=== PATIENT | female | born 1945 | race Caucasian/White ===

== ENCOUNTER → 2024-02-06 06:32 | Day surgery (SDC) | payer MEDICARE, OTHER, SELFPAY | LOC: GI 06:32 | PROVIDERS: ATTENDING PHYSICIAN Internal Medicine Gastroenterology | DX: Z12.11 Encounter for screening for malignant neoplasm of colon (principal); Z86.010 Personal history of colon polyps; K57.30 Diverticulosis of large intestine without perforation or abscess without bleeding; K64.0 First degree hemorrhoids; D12.2 Benign neoplasm of ascending colon; D12.3 Benign neoplasm of transverse colon; D12.5 Benign neoplasm of sigmoid colon; K22.2 Esophageal obstruction; K44.9 Diaphragmatic hernia without obstruction or gangrene; K31.7 Polyp of stomach and duodenum; K31.89 Other diseases of stomach and duodenum; R11.0 Nausea | CPT/HCPCS: 45385; 45381; 45380; 43239; 88305; 88342 ==

== ENCOUNTER → 2024-07-26 06:31 | Day surgery (SDC) | payer MEDICARE, OTHER, SELFPAY | LOC: GI 06:31 | PROVIDERS: ATTENDING PHYSICIAN Internal Medicine Gastroenterology | DX: Z12.11 Encounter for screening for malignant neoplasm of colon (principal); D12.3 Benign neoplasm of transverse colon; K63.89 Other specified diseases of intestine; K57.30 Diverticulosis of large intestine without perforation or abscess without bleeding; K64.0 First degree hemorrhoids; K56.2 Volvulus; Q43.8 Other specified congenital malformations of intestine; Z86.0100 Personal history of colon polyps, unspecified; Z98.890 Other specified postprocedural states | CPT/HCPCS: 45385; 45380; 45381; 45388; 88305 ==

== ENCOUNTER → 2025-02-25 07:34 | Outpatient (REF) | payer MEDICARE, OTHER, SELFPAY ==
[2025-02-25 09:02] LABS: % Eosinophils 2.7 % (0-6); % Immature Granulocytes 0.2 % (0-0.5); % Monocytes 10.2 % (1.7-9.3); % Neutrophils 68.9 % (42.2-75.2); Absolute Basophils 0.1 10^3/uL (0-0.2); Absolute Eosinophils 0.2 10^3/uL (0-0.7); Absolute Lymphocytes 1.4 10^3/uL (1.2-3.4); Absolute Monocytes 0.8 10^3/uL (0.1-0.6); Absolute Neutrophils 5.5 10^3/uL (1.4-6.5); Hemoglobin 13.9 g/dL (12.0-16.0); Mean Corp Hgb Conc. 33.1 g/dL (33.0-37.0); Mean Corpuscular Hgb 31.3 pg (27.0-31.0); Mean Corpuscular Volume 94.6 fL (81.0-99.0); Mean Platelet Volume 10.3 fL (7.4-10.4); Nucleated Red Blood Cells % 0 %; Platelet Count 322 10^3/uL (130-400); Red Blood Cell Count 4.44 10^6/uL (4.20-5.40); Red Cell Dist. Width 13.4 % (11.5-14.5); White Blood Cell Count 8.1 10^3/uL (4.8-10.8)
[2025-02-25 10:06] LABS: TSH Reflex To Free T4 2.46 uIU/ml (0.47-4.68)
[2025-02-25 10:50] LABS: ALT (SGPT) 16 U/L (0-35); AST (SGOT) 22 U/L (14-36); Albumin 4.5 g/dl (3.5-5.0); Alkaline Phosphatase 83 U/L (38-126); Blood Urea Nitrogen 19 mg/dl (7-17); Calcium 9.6 mg/dl (8.4-10.2); Carbon Dioxide 23 mmol/L (22-30); Chloride 108 mmol/L (98-107); Glucose 82 mg/dl (70-99); HDL Cholesterol 98 mg/dl; LDL Cholesterol, Calculated 112 mg/dl; Potassium 4.1 mmol/L (3.5-5.1); Sodium 140 mmol/L (135-145); Total Bilirubin 0.8 mg/dl (0.2-1.3); Total Cholesterol 226 mg/dl (50-199); Total Protein 6.7 g/dl (6.3-8.2); Triglyceride 82 mg/dl (10-149); Very Low Density Lipoprotein 16 mg/dl (0-30); eGFR > 60.00
== END ==
LOC: REG 07:34
PROVIDERS: ATTENDING PHYSICIAN Family Medicine
DX: J43.2 Centrilobular emphysema (principal); M85.89 Other specified disorders of bone density and structure, multiple sites; R41.3 Other amnesia; Z13.6 Encounter for screening for cardiovascular disorders; K56.7 Ileus, unspecified
CPT/HCPCS: 36415; 80053; 80061; 84443; 85025

== ENCOUNTER 2025-06-02 10:02 | Emergency (ER) | payer MEDICARE, OTHER, SELFPAY ==
[2025-06-02 10:06] VITALS: BP 131/90
--- NOTE | 2025-06-02 11:33 | ED.GENMED ---
History of Present Illness
General
Chief Complaint: Musculo-Skeletal Complaint
Source: patient and spouse
Exam Limitations: none
Time Seen by Provider: 06/02/25 11:13
Nursing documentation reviewed up to this point in time: agreed with
History of Present Illness
History of Present Illness:
80-year-old female presenting to the emergency department with ongoing wrist discomfort after falling on her wrist 3 weeks ago. Has been wearing a brace still ongoing pain. Denies numbness weakness or additional injuries.
Past History
Past History
ED Past Medical History: COPD and Other (Osteoporosis)
ED Past Surgical History: and Tonsilectomy
Social History
Tobacco: Former smoker
Alcohol: None
Drug: None
Personal:
Living: with family
Review of Systems
Review of Systems
Allergies reviewed?: Yes
All Other Systems: ROS reviewed and negative except as documented in HPI and ROS
Phy Exam
Physical Exam
Physical Exam:
GENERAL: Alert , in no apparent distress
EYE: pupils equal and reactive
NECK: Supple, no significant adenopathy.
ENT: o/p clr, mmm.
CARDIAC: Regular rate and rhythm .
LUNGS: Clear breath sounds bilaterally, no acute respiratory distress, no wheezes/rales/rhonchi
ABDOMEN: Soft, without focal tenderness, no r/g, no cvat
NEUROLOGICAL: Alert and oriented, no focal neuro deficits
SKIN: Warm and dry, skin intact.
MUSCULOSKELETAL: Discomfort to the right wrist to palpation mainly to the base of the thumb not specifically over the anatomical snuffbox some mild pain to the distal radius no discomfort throughout the remainder of the forearm elbow upper arm or
hand. No swelling. No edema, well perfused.
PSYCH: Normal and appropriate interaction.
Course
Orders/Labs/Results
Orders:
Orders
06/02/25 10:10
CR Wrist - Right Min 3 Views Urgent
Comment:
Reason For Exam: fall on outstretched hand 3 weeks ago
06/02/25 11:33
Splints/Slings/Crut- Treatment ONCE
Vital Signs
Initial and Last Documented VS:
Initial Vital Signs
Temp Pulse Resp BP Pulse Ox
97.5 F 76 16 131/90 98
06/02/25 10:06 06/02/25 10:06 06/02/25 10:06 06/02/25 10:06 06/02/25 10:06
Last Documented Vital Signs
Temp Pulse Resp BP Pulse Ox
97.5 F 74 16 132/74 98
06/02/25 10:06 06/02/25 11:42 06/02/25 11:42 06/02/25 11:42 06/02/25 11:42
MDM/Problems Addressed
MDM/Problems Addressed:
80-year-old female presenting to the emergency department ongoing wrist discomfort after a fall 3 weeks ago. Does have tenderness to the base of the thumb. Has been using a wrist splint over the past few weeks. Here x-ray was performed without
evidence of fracture. No evidence of scaphoid injury. Patient was given a thumb spica splint advised for Ortho follow-up if symptoms are persisting. Return precautions given.
*Pulse Oximetry
SaO2: 98
Oxygen Mode of Delivery: Room air
Patient hypoxic: no (99)
*Critical Care Note
Total Time (30-74mins, 75-104mins- exclusive of procedures): Not Applicable
ED Attending Note
-
Portions of this chart may have been created with voice recognition software.� Occasional wrong word or��sound alike� substitutions may have occurred due to the inherent limitations of voice recognition software.
Discharge Plan
Departure
Patient Disposition: Home (Routine Discharge)
Date of Disposition: 06/02/25
Time of Disposition: 11:33
Patient with high blood pressure during this ER visit?: No
Condition: Good
Covid-19: Not Applicable
Discharge Problem:
Sprain of wrist
Instructions: Sprain (DC)
Prescriptions:
No Action
ascorbic acid (vitamin C) [Vitamin C] 500 MG tablet
500 mg PO DAILY
aspirin 81 MG tablet,chewable
81 mg PO DAILY
calcium-vitamin D3-vitamin K [Citracal-D3 Soft Chew] 1 EACH tablet,chewable
2 ea PO BID
melatonin 10 MG capsule
10 mg PO HS
turmeric 400 mg Capsule
400 mg PO DAILY Qty: 0
Trelegy Ellipta 200-62.5-25 mcg Blister With Device
1 inh inhalation R DAILY
albuterol sulfate [Ventolin HFA] 90 mcg/actuation HFA aerosol inhaler
2 puff INHALATION R Q4 PRN (Reason: sob/wheezing)
Referrals:
Sebastian Owens MD [Family Provider, Family Practice]
Marcelo Lal MD [Active, Orthopedics] - Follow up in 5-7 days
Activity Restrictions/Additional Instructions:
You came to the emergency department today with concerns of ongoing wrist discomfort. Here your x-ray did not show any obvious fracture. For any ongoing symptoms please follow-up closely with orthopedics for further assessment. Return for any
worsening, new or concerning symptoms.
Interventions
Interventions:
*Risk Screen - Suicide Last Done: 06/02/25 11:05
*General Assessment Last Done: 06/02/25 11:05
*Neglect/Abuse Screening Last Done: 06/02/25 11:05
*ED- Fall Risk Assessment Last Done: 06/02/25 11:05
*ED COVID-19 Vaccine History Last Done: 06/02/25 11:05
*Nursing Disposition Last Done: 06/02/25 11:42
ED-Musculoskeletal Assessment Last Done: 06/02/25 11:05
Discharge Date and Time
Discharge Date/Time: 06/02/25 11:43
Print Language: LATVIAN
[2025-06-02 11:42] VITALS: BP 132/74
== END 2025-06-02 11:43 | disposition home or self-care (01) ==
LOC: EMR 10:02
PROVIDERS: EMERGENCY PHYSICIAN Emergency Medicine; FAMILY PHYSICIAN Family Medicine
DX: S63.501A Unspecified sprain of right wrist, initial encounter (principal); J44.9 Chronic obstructive pulmonary disease, unspecified; M81.0 Age-related osteoporosis without current pathological fracture; Z79.82 Long term (current) use of aspirin; Z87.891 Personal history of nicotine dependence; W19.XXXA Unspecified fall, initial encounter
CPT/HCPCS: 99283; 29125; 73110